=== PATIENT | female | born 1955 | race Caucasian/White ===

== ENCOUNTER 2020-08-21 02:55 | Emergency (ER) | payer OTHER, SELFPAY ==
[2020-08-21 02:56] VITALS: BP 200/84; PULSE 65; RESP 16; TEMP 36.1; O2SAT 98; BMI 29.0
--- NOTE | 2020-08-21 03:21 | CT_ITS ---
STUDY: CT ABDOMEN AND PELVIS WITHOUT CONTRAST REASON FOR EXAM: Female, 65 years old. left flank pain RADIATION DOSAGE (If Supplied By Facility): CTDIvol = ( 13.96 ) mGy, DLP = ( 599.75 ) mGycm TECHNIQUE: Transaxial images were obtained from the dome of the diaphragm to the symphysis pubis without oral contrast, and without intravenous contrast. Sagittal and coronal images were reconstructed. Individualized dose optimization techniques were used for this CT. COMPARISON: None. FINDINGS: The visualized lung bases are unremarkable. The visualized portions of the heart are within normal limits. Normal liver. Normal gallbladder and extrahepatic biliary system. Normal spleen. Normal pancreas. Normal bilateral adrenal glands. Normal right kidney. Mild left hydronephrosis and proximal left hydroureter. Small 3 mm stone in the left UPJ region. Another suspected stone is seen in the left mid ureter measuring 5 mm. Normal visualized stomach. Normal small intestine. Normal colon. The appendix is visualized and appears normal. Normal abdominal aorta. Normal inferior vena cava. Normal retroperitoneum. Normal urinary bladder. There is absence of the uterus consistent with a prior hysterectomy. Normal abdominal wall. Normal osseous structures. CT/Abdomen/Pelvis without Cont IMPRESSION: Mild left hydronephrosis and proximal left ureter with small 3 mm stone in the left UPJ region. Another suspected 5 mm stone seen in the left mid ureter. Electronically Signed: Oliver Smith DO at 4:57 EDT Tel , Service support ,
--- NOTE | 2020-08-21 03:23 | ED.VIS.GI ---
HPI HPI - GI History of Present Illness Chief Complaint: Flank Pain Informant: patient Abdominal Pain/Flank Pain Onset: Weeks (2) Context: - (unk) Timing: Continuous and Waxes and wanes Quality: Aching Location: Left Flank Current Severity: Moderate Maximum Severity: Severe Worsened by: Nothing Relieved by: - (ibuprofen when she takes it) Nausea/Vomiting/Emesis GI Symptom: Positive for Nausea; Negative for Vomiting Diarrhea/Melena/Hematochezia GI Symptom: Negative for Diarrhea, Melena and Hematochezia Associated Symptoms Associated Symptoms: Negative for Dysuria, Frequency, Hematuria and Urgency Narrative Narrative: Patient states she has been having left flank pain for 2 weeks. She saw her PCP, they did urinalysis, she states it was unremarkable, she was counseled for an outpatient CT which she is supposed to have next week, they put her on 3 days of an antibiotic, and I told her to take Tylenol and ibuprofen as needed which she has been doing basically to get to sleep at night. She states she did not take that medication tonight, however she woke up in more severe pain so presents to the emergency department. She has no new symptoms. No fevers, chills, hematuria, dysuria, chest symptoms. No history of kidney stones in her, prior hysterectomy no other abdominal surgeries. PFSH PFSH no medical history Home Medications hydrocodone-acetaminophen 0.5 - 1 tab PO Q4H PRN PRN 2 Days #10 tablet 08/21/20 [Rx Last Taken Unknown] ondansetron 8 mg PO Q8H PRN PRN #20 tab 08/21/20 [Rx Last Taken Unknown] Allergy/AdvReac Type Severity Reaction Status Date / Time No Known Allergies Allergy Verified 08/21/20 02:56 Surgical History History of hysterectomy Total knee replacement status Social History Smoking Status: Never smoker ROS ROS ED Constitutional Constitutional ED: Denies chills or fever(s) Eyes Eyes: Denies change in vision or diplopia ENT ENT ED: Denies rhinorrhea or sore throat Cardiovascular Cardiovascular: Denies chest pain or palpitations Respiratory/Chest Respiratory/Chest: Denies cough or dyspnea Gastrointestinal Gastrointestinal: Reports abdominal pain and nausea; Denies diarrhea or vomiting Genitourinary Genitourinary ED: Reports as per HPI and flank pain; Denies dysuria or hematuria Musculoskeletal Musculoskeletal: Denies back pain or neck pain Integumentary Denies abscess or rash Neurologic Neurologic: Denies headache(s), paresthesias or weakness Psychiatric Psychiatric: Denies anxiety or suicidal thoughts EXAM Physical Exam Const Vital Signs: 08/21/20 02:56 08/21/20 04:58 Temperature 96.9 F L Temperature Source Temporal Pulse Rate 65 Respiratory Rate 16 16 Blood Pressure 200/84 H Blood Pressure Mean 122 Pulse Ox 98 Oxygen Delivery Method Room Air Positive well nourished and well developed Constitutional Narrative: Well-appearing, comfortable appearing General Appearance ED: well developed and NAD HEENT Reports moist mucous membranes normocephalic and atraumatic Eyes PERRL and EOMs intact bilaterally Neck full ROM and supple Resp normal respiratory effort and clear to auscultation bilaterally Cardio regular rate, regular rhythm and no murmurs GI non-tender and non-distended Auscultation: normoactive bowel sounds Palpation: soft Back/Spine no CVA tenderness General Back: other FROM Extremity normal to inspection General Extremety ED: Negative for edema, pulses abnormal or tenderness General Extremity: Negative for edema or pulses abnormal Neuro oriented x3, CN's II-XII intact bilaterally and no sensory deficits noted Sensorium / Orientation: awake and alert Motor Exam: strength 5/5 throughout Skin no rashes or lesions noted and no wounds MDM MDM MDM Narrative Medical decision making narrative: As below labs are reassuringly normal, no sign of infection in the urine. CT does show a left mid ureteral stone, 3 mm and as noted below, additionally a 5 mm stone in the left ureter. These both should be passable with expectant management. Since patient has had the discomfort for 2 weeks and still has not passed it, I think it would be reasonable to have an outpatient consultation with urology. She was offered a prescription for analgesics, she was given urine strainers, she feels much better after single dosing of analgesics here, and is comfortable going home and with this plan. We discussed reasons to return. Lab Data Attestation: I reviewed the patient's lab results. Labs: Laboratory Results - last 24 hr 08/21/20 08/21/20 08/21/20 03:00 03:00 03:00 WBC 5.0 RBC 4.74 Hgb 14.9 Hct 44.4 MCV 93.7 MCH 31.4 MCHC 33.6 RDW Std Deviation 41.3 RDW Coeff of Nataliya 11.9 Plt Count 144 L MPV 11.9 Immature Gran % (Auto) 0.200 Neut % (Auto) 50.1 Lymph % (Auto) 31.2 [place] % (Auto) 12.9 H Eos % (Auto) 4.6 Baso % (Auto) 1.0 Absolute Neuts (auto) 2.5 Absolute Lymphs (auto) 1.55 Nucleated RBC % 0 Sodium 142 Potassium 4.0 Chloride 105 Carbon Dioxide 31.0 Anion Gap 6 BUN 19 H Creatinine 0.78 Estim Creat Clear Calc 47.14 Est GFR (MDRD) Af Amer 95 Est GFR (MDRD) Non-Af 79 BUN/Creatinine Ratio 24.5 H Glucose 100 Calcium 9.0 Urine Color Yellow Urine Clarity Clear Urine pH 7.0 Ur Specific [place] 1.010 Urine Protein Negative Urine Glucose (UA) Normal Urine Ketones Negative Urine Occult Blood Negative Urine Nitrite Negative Urine Bilirubin Negative Urine Urobilinogen Normal Ur Leukocyte Esterase Negative Urine RBC 0 SEEN Urine WBC 0 SEEN Ur Squamous Epith Cells 0-5 SEEN Urine Bacteria 0 SEEN Urine Mucus 0 SEEN Radiography Diagnostic Testing: Radiology Impression Abdomen/Pelvis CT 08/21/20 03:21 IMPRESSION: Mild left hydronephrosis and proximal left ureter with small 3 mm stone in the left UPJ region. Another suspected 5 mm stone seen in the left mid ureter. Electronically Signed: Oliver Smith DO at 4:57 EDT Tel , Service support , Discharge Plan Triage Chief Complaint: Flank Pain ED Provider: Dar Frye Dx/Rx/DC Orders Clinical Impression: Renal colic on left side, Ureterolithiasis Instructions: ED Kidney Stone w/ Colic Prescriptions: New hydrocodone-acetaminophen [hydrocodone-acetaminophen] 1 TABLET tablet 0.5 - 1 tab PO Q4H PRN PRN (Reason: Pain) 2 Days Qty: 10 RF: 0 ondansetron [ondansetron] 4 MG tablet 8 mg PO Q8H PRN PRN (Reason: Nausea) Qty: 20 RF: 0 Primary Care Provider: Payal Lafleur Referrals: Giselle Vera MD [STAFF PHYSICIAN] - (Call for appointment to be seen within the next week unless you pass the stone and your symptoms resolve) Payal Lafleur, JUMA [Primary Care Provider] - Disposition Disposition: Home, Self Care
[2020-08-21 03:27] LABS: Bacteria 0 SEEN /hpf (None Seen); Mucous, Urine 0 SEEN /hpf (<or=2+); Red Blood Cells-Urine 0 SEEN /hpf (0-5); White Blood Cells 0 SEEN /hpf (0-5)
[2020-08-21] MEDS: Ondansetron 4 MG/2 ML Vial IV (03:33)
[2020-08-21] MEDS: Ketorolac 15 MG/ML Vial IV (03:34)
[2020-08-21 03:35] LABS: Color, Urine Yellow (Yellow); Glucose, Dipstick Normal (Normal); Ketone-Dipstick Negative (Negative); Leukocyte Esterase-Dipstick Negative /ul (Negative); Nitrite-Dipstick Negative (Negative); Occult Blood-Urine Negative /ul (Negative); Protein-Dipstick Negative (Negative); Urine Bilirubin Dipstick Negative (Negative); Urine Clarity Clear (Clear); Urine Urobilinogen Normal (Normal)
[2020-08-21] MEDS: Morphine 4 MG/ML Syringe IV (03:35)
[2020-08-21 03:46] LABS: Squamous Epithelial Cells - UA 0-5 SEEN /hpf (5-10)
[2020-08-21 03:50] LABS: Absolute Lymphocyte Count 1.55 X10^3/uL (0.83-4.51); Absolute Neutrophil Count 2.5 X10^3/uL (2.0-7.7); Basophil# 0.05 X10^3/uL; Eosinophil# 0.23 X10^3/uL; Eosinophils% 4.6 % (0-5); Hematocrit 44.4 % (37-47); Hemoglobin 14.9 g/dL (12.0-15.0); Lymphocyte # 1.55 X10^3/ul (0.83-4.51); Lymphocyte % 31.2 % (19-41); Mean Corp Hgb Conc 33.6 g/dL (32-36); Mean Corpuscular Hgb 31.4 pg (27.0-32.0); Mean Corpuscular Volume 93.7 fL (81-99); Mean Platelet Vol. 11.9 fl (6.2-12.0); Monocyte# 0.64 X10^3/uL; Monocyte% 12.9 % (0-10); NRBC Flagged by Analyzer 0 % (0-5); Neutrophil # 2.49 X10^3/uL (2.7-7.7); Neutrophil % 50.1 % (47-70); Platelet Count 144 K/mm3 (150-450); RBC Distribution Width CV 11.9 % (11.6-14.6); RBC Distribution Width SD 41.3 fl (35.1-43.9); Red Blood Count 4.74 M/mm3 (4.2-5.4)
[2020-08-21 03:55] LABS: Anion Gap 6 (5-15); BUN 19 mg/dL (7-18); BUN/Creat Ratio 24.5 RATIO (10-20); Chloride 105 mmol/L (98-107); Creatinine, Serum 0.78 mg/dL (0.55-1.02); EST Glomerular Filtration Rate 79 mL/min (>60); Est Glom Filt Rate - Afr Amer 95 mL/min (>60); Estimated Creatinine Clearance 47.14 ml/min; Glucose 100 mg/dL (74-106); Sodium Level 142 mmol/L (136-145)
[2020-08-21 04:58] VITALS: RESP 16
[2020-08-21 05:33] VITALS: BP 159/81; PULSE 60; RESP 18; O2SAT 99
== END 2020-08-21 05:33 | disposition home or self-care (01) ==
PROVIDERS: Emergency Provider Emergency Medicine; PCP Physician Assistant
DX: N13.2 Hydronephrosis with renal and ureteral calculous obstruction (principal)
CPT/HCPCS: 74176; 80048; 81001; 85025; 96374; 96375; 99282; A4216; J2405

== ENCOUNTER 2020-09-08 09:15 | Day surgery (SDC) | payer SELFPAY, OTHER ==
[2020-09-08] VITALS (8 sets, daily range): BP systolic 125–152; BP diastolic 68–84; PULSE 57–74; RESP 12–16; TEMP 35.8–36.5; O2SAT 99–100; BMI 28.1
[2020-09-08] MEDS: Lactated Ringers 1,000 ML 100 ML IV (09:55)
--- NOTE | 2020-09-08 11:08 | PCM.OPRPT ---
Problems Associated Problem List Diagnoses (1) Ureterolithiasis: (2) Renal colic on left side: Report of Operation Date of Procedure: 09/08/20 Pre-Operative Diagnosis: Left ureteral calculus Post-Operative Diagnosis: Same, passed Surgery/Procedure Performed:: Cystoscopy, left retrograde pyelogram, left ureteroscopy, left ureteral stent insertion Surgeon: Giselle Vera Type of Anesthesia: General Description of Procedure: The patient is a 65-year-old female who developed left flank pain. She was evaluated and found to have a left ureteral calculus. She did not pass the stone and now presents for definitive surgical intervention. Informed consent was obtained. The patient was taken to the operating room and placed on the operating room table. Anesthesia monitored the head, neck, airway, IV access and vital signs throughout the case. Once anesthesia was probably ministered the patient was placed into dorsal lithotomy position was prepped and draped in usual sterile fashion. A cystourethroscopy was then performed through the urethra under direct visualization. Bilateral ureteral orifices were located in the correct anatomic position on the trigone. The left ureteral orifice was gently intubated with an 8 Swedish cone-tip catheter and contrast was injected in retrograde fashion under fluoroscopic visualization. There were no filling defects identified. The left ureteral orifice was then intubated with a 0.035 Glidewire. A second Glidewire was passed alongside the first and was used as a safety wire. The flexible ureteroscope was then passed over the guidewire into the left ureter. There was a narrow area at the level of the UPJ, the ureteroscope was able to be pushed through the narrowing into the renal pelvis. No stones were identified. Direct visualization was utilized on the way out with the ureteroscope and there were no stones identified within the ureter. Using the safety wire and the cystoscope, a 6 Swedish 24 cm JJ stent was inserted over the wire with good curling in the renal pelvis as well as the urinary bladder. The patient's bladder was emptied and the case was terminated. There were no complications during this procedure. The patient was taken to the recovery room in good condition. Grafts/Implants Used: JJ stent Complications none Admit VTE Documentation VTE Present on Admission: Yes VTE Mechan Device Prophylaxis: SCD's VTE Pharm Prophylaxis ordered?: No Reason prophylaxis not ordered:: Treatment Not Indicated
--- NOTE | 2020-09-08 11:41 | PCM.DC ---
Discharge Instructions Diet Discharge Diet: No restrictions Activity Discharge Activity: Return to Normal Activity May resume sexual activity in: No Restrictions Dressing / Incision Call your doctor if you observe: Fever of 101 or Higher, Inability to urinate, Inability to have a bowel movement and Uncontrolled pain Follow Up Care Please Follow Up With: Giselle Vera MD When: in 2-3 days for stent removal Test Results: Test results from this visit will be discussed in further detail at your follow-up appointment, if applicable. Discharge Plan Admission Attending Provider: Giselle Vera Primary Care Provider: Payal Lafleur Discharge Orders/Prescriptions Prescriptions: New oxycodone-acetaminophen [oxycodone-acetaminophen] 1 TABLET tablet 2 tab PO Q8H PRN PRN (Reason: Pain) 7 Days Qty: 20 RF: 0 cephalexin [cephalexin] 500 MG capsule 500 mg PO Q12 3 Days Qty: 6 RF: 0 phenazopyridine [Pyridium] 200 MG tablet 200 mg PO TID PRN PRN (Reason: Bladder Spasms) 7 Days Qty: 30 RF: 0 Continued acetaminophen [Tylenol] 325 mg Tablet 650 mg PO Q6H PRN (Reason: Pain) RF: 0 Referrals / Follow Up: Payal Lafleur PA [Primary Care Provider] - Disposition Disposition (needs filled in before D/C Order can be placed): Home, Self Care
[2020-09-08] MEDS: Cefazolin 2 GM in 0.9% Normal Saline 100 ML IV (11:47)
--- NOTE | 2020-09-08 13:58 | SUR.PHASEII ---
Awaiting ride at this time. Phase 2. VSS.
== END 2020-09-08 14:41 | disposition home or self-care (01) ==
LOC: SDC 09:17 → AC 09:18
PROVIDERS: PCP Physician Assistant; Referring Provider Urology; Visit Provider Urology
PROC: 0TJ98ZZ Inspection of Ureter, Via Natural or Artificial Opening Endoscopic (ICD-10-PCS; CPT 52352; principal; 2020-09-08 11:40)
DX: N13.2 Hydronephrosis with renal and ureteral calculous obstruction (principal)
CPT/HCPCS: 00910; 52332; 76000; 87426; J7120; C2617; J2405

== ENCOUNTER → 2020-10-07 09:32 | Outpatient (CLI) | payer SELFPAY, OTHER ==
[2020-09-08 10:15] VITALS: BMI 28.1
--- NOTE | 2020-10-07 09:35 | US_ITS ---
STUDY: RENAL ULTRASOUND - COMPLETE REASON FOR EXAM: Female, 65 years old. Left hydronephrosis. TECHNIQUE: Ultrasound evaluation of the kidneys was performed with real-time and static carlin-scale imaging. COMPARISON: None. FINDINGS: RIGHT KIDNEY: Normal location of the right kidney, which is normal in size. The right kidney measures 11.2 cm x 5.3 cm x 4.3 cm. There is a normal cortex of the right kidney. The renal cortex measures 1.3 cm. Small right parapelvic cyst. There are no right renal calculi. There is no right hydronephrosis. DISTAL RIGHT URETER: There is non-visualization of the distal right ureter. There is no demonstrated right ureterovesical junction calculus. There is a visualized right ureteral jet. LEFT KIDNEY: Normal location of the left kidney, which is normal in size. The left kidney measures 11.3 cm x 5.1 signed by 4.7 cm. There is a normal cortex of the left kidney. The renal cortex measures 1.5 cm. There is a 1.6 cm x 1.3 cm x 1.3 cm parapelvic cyst. There are no left renal calculi. There is no left hydronephrosis. DISTAL LEFT URETER: There is non-visualization of the distal left ureter. There is no demonstrated left ureterovesical junction calculus. There is a visualized left ureteral jet. BLADDER: The distended urinary bladder has a volume of 376 ml. There is a normal wall thickness of the distended urinary bladder. There is no demonstrated mass within the urinary bladder. There are no demonstrated bladder calculi. US/Kidney and Bladder IMPRESSION: Small bilateral parapelvic cysts. Electronically Signed: Gary Hernandez MD at 10:29 EDT , Service support ,
== END ==
PROVIDERS: PCP Physician Assistant; Referring Provider Urology; Visit Provider Urology
DX: N13.30 Unspecified hydronephrosis (principal)
CPT/HCPCS: 76770

== ENCOUNTER → 2022-08-19 | Outpatient (CLI) | payer OTHER, SELFPAY ==
--- NOTE | 2022-08-19 13:30 | LES_PTH ---
PATIENT: MARTY DAVIS LOC: [facility] #:[id number] AGE/SX: 67/F ROOM: RE08/19/[address]: Dr. Amador Otto MD : [id number] BED: DIS: 08/19/2022 SPEC #: [id number] RECD: 08/19/22 15:47 STATUS: ALFREDO REBean #: [id number] ANTIONE: 08/19/22 13:[address]: Amador Otto DEPT: SURGICAL PATHOLOGY RECD BY: Vane Can ENTERED: 08/22/22 08:37 SP TYPE: Lesion OTHR DR: JUMA Nascimento Tissues: Skin of face, NOS Procedures: Surgery Specimen Level IV HEADER OPERATION: Skin lesion, excision right forehead PRE-OP DIAGNOSIS: Right forehead skin lesion TISSUE SUBMITTED: Right forehead skin lesion MICROSCOPIC DIAGNOSIS Right forehead skin lesion, excision: Invasive moderately differentiated squamous cell carcinoma, completely excised. Solar elastosis and solar keratosis. SJ : 08/23/2022 COMMENT The tumor measures 0.8 cm in greatest width and up to 0.1 cm in depth. Perineural invasion is not seen. Skeletal muscle tissue is also present in the specimen and free of tumor. MICROSCOPIC DESCRIPTION Slides are reviewed. GROSS DESCRIPTION Received is one container labeled with the patient name and designated right forehead skin lesion. The specimen consists of one piece of english, white skin ellipse that measures 2 x 1 x 0.3 cm. A suture is present at the tip, presumed to be 12 o'clock. The specimen is inked as follows 12 o'clock tip - yellow, 6 o'clock tip green, 3 o'clock margin black, and 9 o'clock margin blue. The specimen is serially sectioned and totally submitted in one cassette. SJ: 08/22/22 TC:0 CPT:96953
== END | disposition home or self-care (01) ==
LOC: LABSPEC 15:55
PROVIDERS: PCP Physician Assistant; Referring Provider Surgery; Visit Provider Surgery
DX: L98.8 Other specified disorders of the skin and subcutaneous tissue (principal)
CPT/HCPCS: 88305